=== PATIENT | female | born 1985 | race Caucasian/White ===

== ENCOUNTER 2017-03-01 09:56 | Emergency (ER) | payer SELFPAY ==
[2017-03-01 10:13] VITALS: BP 127/86
[2017-03-01] MEDS ORDERED: Penicillin V Potassium 500 MG Tab PO ONE (11:26)
[2017-03-01] MEDS ORDERED: Naproxen 500 MG Tab PO ONE (11:26)
--- NOTE | 2017-03-01 11:32 | EDM.PDOC ---
ED HPI ENT - General Chief Complaint: Headache Stated Complaint: TOOTH PAIN Time Seen by Provider: 03/01/17 10:10 Source of Information: Reports: Patient, RN notes reviewed History Limitations: Reports: No limitations - History of Present Illness INITIAL COMMENTS - FREE TEXT/NARRATIVE: The patient states that she was at the dentist this past 02/26/2017, where she had to right lower molars removed. She states that she was prescribed 5 tablets of Hebron 10/325, along with the recommendation to take Advil and Tylenol. She states that she is already out of the prescribed Hebron. She states that she developed right sinus pain, a "migraine" headache, and right jaw pain last night. She states that she cannot take ibuprofen due to stomach pain. Review of the medical records finds that the patient is not prescribed any migraine medications. The patient states that she had previously been prescribed migraine medicines. The patient states that she is hoping to be referred to a pain service. - Related Data Allergies/ADRs: Allergies Allergy/AdvReac Type Severity Reaction Status Date / Time meperidine HCl [From Demerol] Allergy Rash Verified 03/01/17 10:06 hydromorphone [From Dilaudid] AdvReac Nausea Verified 03/01/17 10:06 metoclopramide HCl AdvReac Hallucinati Verified 03/01/17 10:06 [From Reglan] ons Home Meds: Home Meds Gabapentin [Neurontin] 600 mg PO TID 02/15/15 [History] Ibuprofen 800 mg PO BID PRN 11/22/16 [History] Multivitamin [Multi-Vitamin Daily] 1 tab PO DAILY 11/22/16 [History] ClonazePAM [KlonoPIN] 1 mg PO TID 11/23/16 [History] Zolpidem [Ambien] 10 mg PO BEDTIME PRN 11/24/16 [History] Albuterol/Ipratropium [DuoNeb 3.0-0.5 MG/3 ML] 3 ml NEB Q4H PRN #30 neb [Rx] Venlafaxine [Effexor] 1 tab PO DAILY 01/07/17 [History] Diphenhyd/Lidocaine/Nystatin [Magic Mouthwash] 15 ml PO QID #1 bottle 01/18/17 [ Rx] Naproxen 1 tab PO Q12H PRN #20 tablet 03/01/17 [Rx] Penicillin V Potassium [IJD: Penicillin V Potassium] 1 tab PO Q6H #40 tab [Rx] Past Medical History Neurological History: Reports: Neuropathy, peripheral (LLE) Psychiatric History: Reports: Anxiety, Depression Hematologic History: Reports: Anemia, Iron deficiency Oncologic (Cancer) History: Reports: Leukemia (AML. Medically induced coma for 5 weeks in 2010.) - Past Surgical History Female Surgical History: Reports: Oophorectomy (Left x 3) Oncologic Surgical History: Reports: Bone marrow aspiration Social & Family History - Family History Family Medical History: Noncontributory HEENT: Reports: Allergic rhinitis, Sinusitis Cardiac: Reports: PR Respiratory: Reports: None GI: Reports: Other (see below) Other GI Family History: heart burn : Reports: None OBGYN: Reports: Fibroids Musculoskeletal: Reports: None Neurological: Reports: Alzheimers disease, Dementia Psychiatric: Reports: Depression, Panic attack Endocrine/Metabolic: Reports: Other (see below) Other Endocrine/Metabolic Family History: vitamin deficiency Hematologic: Reports: None Immunologic: Reports: None - Tobacco Use Smoking Status *Q: Former Smoker Used Tobacco, but Quit: Yes Month Tobacco Last Used: 2006 Second Hand Smoke Exposure: No - Caffeine Use Caffeine Use: Reports: Coffee, Soda, Tea Other Caffeine Use: 1 per day - Alcohol Use Alcohol Use History: Yes Alcohol Use Frequency: Socially - Recreational Drug Use Recreational Drug Use: Yes Drug Use in Last 12 Months: Yes Recreational Drug Type: Reports: Marijuana/Hashish Recreational Drug Use Frequency: Not Used In Over 2 Months - Living Situation & Occupation Living situation: Reports: single, with significant other (Boyfriend), with family (Son) Occupation: unemployed ED ROS ENT - Review of Systems Review Of Systems: See Below Constitutional: Reports: no symptoms HEENT: Reports: No symptoms Respiratory: Reports: No Symptoms Cardiovascular: Reports: No symptoms Endocrine: Reports: no symptoms GI/Abdominal: Reports: No symptoms : Reports: no symptoms Musculoskeletal: Reports: no symptoms Skin: Reports: no symptoms Neurological: Reports: No Symptoms Psychiatric: Reports: No symptoms Hematologic/Lymphatic: Reports: no symptoms Immunologic: Reports: no symptoms ED EXAM, ENT - Physical Exam Exam: See Below Exam Limited By: No limitations General Appearance: alert, WD/WN, no apparent distress Eye Exam: bilateral eye: EOMI, normal inspection Ears: normal external exam, normal canal, hearing grossly normal, normal TMs Nose: normal inspection, normal mucousa, no blood Mouth/Throat: Normal inspection, Normal lips, Normal oropharynx, Other (Teeth # 1 and 2 absent. Teeth #3, 4 with fillings. Tooth #14 with filling. Teeth #15 , 16 absent. Tooth #17 carious. Tooth #18 with filling. Teeth #19, 20 absent. Teeth #29, 30, 31, 32 absent. No significant gingival swelling or suggestion of dental abscess.) Head: atraumatic, normocephalic Neck: normal inspection, supple, non-tender, full range of motion. No: lymphadenopathy (L), lymphadenopathy (R) Course - Vital Signs Last Recorded V/S: Last Vital Signs Temp 36.7 C 03/01/17 10:09 Pulse 114 H 03/01/17 10:09 Resp 12 03/01/17 10:09 BP 127/86 03/01/17 10:09 Pulse Ox 98 03/01/17 10:09 - Orders/Labs/Meds Meds: Medications Discontinued Medications Generic Name Dose Route Start Last Admin Trade Name Freq PRN Reason Stop Dose Admin Naproxen 500 mg 03/01/17 11:26 03/01/17 11:35 Naprosyn PO 03/01/17 11:27 500 mg ONETIME ONE Administration Penicillin V Potassium 500 mg 03/01/17 11:26 03/01/17 11:35 Veetids PO 03/01/17 11:27 500 mg ONETIME ONE Administration - Re-Assessments/Exams Free Text/Narrative Re-Assessment/Exam: 03/01/17 11:26 The patient presents with lower right jaw pain following extraction of 2 molars on 02/26/2017. The patient stated that her dentist had written her prescription for 5 tablets of He[place] 10/325, however, the [employer] indicates that the prescription was for 15 tablets, which the patient states that she is out of. Additionally, medical records indicate that the patient is a well-documented drug seeker, having been diagnosed with opioid dependence and withdraw on 2014, drug seeking behavior and chronic pain on 09/02/2016, opioid dependence and withdraw, and chronic pain on 09/04/2016, and an overdose on 11/15/2016. Additionally, the patient has been fired from our clinic, and fired from pain management at least on 2 separate occasions. The patient states that her dentist did not prescribed an antibiotic. While I do not find any specific signs of infection, such as oral drainage, lymphadenopathy, or fever, I believe it would be prudent to start the patient on penicillin to prevent infection. I will start her on penicillin. For pain, I will prescribe naproxen. Departure - Departure Time of Disposition: 11:30 Disposition: Home, Self-Care 01 Condition: good Clinical Impression: Dentalgia, Drug-seeking behavior Prescriptions: Naproxen 1 tab PO Q12H PRN #20 tablet PRN Reason: Pain Penicillin V Potassium [IJD: Penicillin V Potassium] 1 tab PO Q6H #40 tab Referrals: Jeffrey Ortez PA-C [Primary Care Provider] - Forms: ED Department Discharge Additional Instructions: You were seen in the emergency room today for right jaw pain, following removal of 2 teeth on 02/26/2017. On examination, we do not find an infection, however, to be safe, we have started you on the antibiotic penicillin. Take one tablet every 6 hours, as prescribed. Finish the entire prescription unless told otherwise by your dentist. You have been started on the pain medicine naproxen. Take one tablet every 12 hours, with food, as prescribed. If you take naproxen, do not also take ibuprofen/Motrin/Advil/Naprosyn/Aleve. Followup with your dentist this coming week, as needed. If any other problems, please do not hesitate to return to the ER.
== END 2017-03-01 11:55 | disposition home or self-care (01) ==
LOC: JD.ED 09:56
DX: K08.89 Other specified disorders of teeth and supporting structures (principal); Z76.5 Malingerer [conscious simulation]; F41.8 Other specified anxiety disorders; Z79.899 Other long term (current) drug therapy; Z98.890 Other specified postprocedural states
CPT/HCPCS: 99284; A9270; 99283